=== PATIENT | male | born 1965 | race Caucasian/White ===

== ENCOUNTER 2019-08-12 17:44 | Emergency (ER) | payer BC ==
[2019-08-12 18:22] VITALS: BP 136/86
--- NOTE | 2019-08-12 18:32 | UC ---
Throat Pain/Nasal Josep HPI - HPI Summary HPI Summary: 54-year-old male who has had head congestion and sinus pressure now over the past 2 weeks. He's a nonsmoker. He did get a flu shot. He also complains of mild sore throat as well as right earache. - History of Current Complaint Chief Complaint: UCGeneralIllness Stated Complaint: RT EAR COMPLAINT, ST Time Seen by Provider: 08/12/19 18:18 Hx Obtained From: Patient Onset/Duration: Gradual Onset Severity: Mild Pain Intensity: 4 Cough: Nonproductive Associated Signs & Symptoms: Positive: Sinus Discomfort, Nasal Discharge - Allergies/Home Medications Allergies/Adverse Reactions: Allergies Allergy/AdvReac Type Severity Reaction Status Date / Time No Known Allergies Allergy Verified 08/12/19 18:21 Home Medications: Home Medications celeCOXIB CAP* [Celebrex CAP*] 200 mg PO BID 08/12/19 [History Confirmed ] PMH/Surg Hx/FS Hx/Imm Hx Previously Healthy: Yes - Family History Known Family History: Positive: Non-Contributory - Social History Occupation: Employed Full-time Lives: With Family Alcohol Use: Rare Substance Use Type: None Smoking Status (MU): Never Smoked Tobacco Review of Systems All Other Systems Reviewed And Are Negative: Yes ENT: Positive: Sore Throat, Ear Ache - Right earache over the past couple of days, Sinus Congestion, Sinus Pain/Tenderness Is Patient Immunocompromised?: No Physical Exam Triage Information Reviewed: Yes Appearance: Well-Appearing, No Pain Distress, Well-Nourished Vital Signs: Initial Vital Signs Temp 98.4 F 08/12/19 18:19 Pulse 87 08/12/19 18:19 Resp 16 08/12/19 18:19 BP 136/86 08/12/19 18:19 Pulse Ox 98 08/12/19 18:19 Vital Signs Reviewed: Yes Eyes: Positive: Conjunctiva Clear ENT: Positive: Hearing grossly normal, Pharynx normal - Yellow postnasal drainage., Nasal congestion, Nasal drainage - Yellow nasal coryza., TM red - Left tympanic membrane pearly-brower with good land johansen and light reflex, right tympanic membrane is mostly pearly-brower however the superior portion has some erythema and moderate landmarks., Sinus tenderness - Tenderness on palpation over the maxillary sinuses., Uvula midline Neck: Positive: Supple, Nontender, No Lymphadenopathy Respiratory: Positive: Lungs clear, Normal breath sounds, No respiratory distress, No accessory muscle use Cardiovascular: Positive: RRR, No Murmur, Pulses Normal, Brisk Capillary Refill Musculoskeletal Exam: Normal Neurological Exam: Normal Psychological Exam: Normal Skin Exam: Normal Throat Pain/Nasal Course/Dx - Course Course Of Treatment: Patient is comfortable here. I'm going to treat him for sinusitis and he is to follow-up with his primary care provider if no improvement in 7 days. - Differential Dx/Diagnosis Provider Diagnosis: Sinusitis Discharge ED - Sign-Out/Discharge Documenting (check all that apply): Patient Departure All imaging exams completed and their final reports reviewed: No Studies - Discharge Plan Condition: Good Disposition: HOME Prescriptions: Amoxicillin PO (*) [Amoxicillin 875 MG (*)] 875 mg PO BID 10 Days #20 tab Patient Education Materials: Sinusitis (ED) Referrals: Emilia Smith MD [Primary Care Provider] - Additional Instructions: Increase fluids, continue your [id number] cold medicine as directed. Definite follow-up with your primary care provider in about 5-7 days if no improvement. - Billing Disposition and Condition Condition: GOOD Disposition: Home
== END 2019-08-12 18:40 | disposition home or self-care (01) ==
LOC: UCCORT 17:44
DX: J32.9 Chronic sinusitis, unspecified (principal); J02.9 Acute pharyngitis, unspecified; H92.01 Otalgia, right ear
CPT/HCPCS: 99212; G0463